=== PATIENT | male | born 1955 | race Two or more races ===

== ENCOUNTER 2025-05-28 15:14 | Emergency (ER) | payer OTHER ==
[~2025-05-28] VITALS: Ht 170.2 cm; Wt 81.6 kg
[2025-05-28] MEDS ORDERED: TETANUS & DIPHTHERIA TOX,ADULT 0.5 ML VIAL IM ONE (18:45)
[2025-05-28] MEDS ORDERED: LIDOCAINE HCL 1% 10ML VIAL PERCUT ONE (18:45)
[2025-05-28] MEDS ORDERED: CIPRO500 MG PO (19:29)
[2025-05-28] MEDS ORDERED: PEPCID AC20 MG PO (19:29)
== END 2025-05-28 20:14 | disposition home or self-care (01) ==
LOC: ER 15:14
DX: S61.412A Laceration without foreign body of left hand, initial encounter (principal); W45.8XXA Other foreign body or object entering through skin, initial encounter; Y93.89 Activity, other specified; Y92.89 Other specified places as the place of occurrence of the external cause; Y99.8 Other external cause status; Z88.0 Allergy status to penicillin; Z88.2 Allergy status to sulfonamides
CPT/HCPCS: 13132; 13133; 90471; 90714; 99282; J1670